=== PATIENT | female | born 1940 | race Caucasian/White ===

== ENCOUNTER 2024-07-26 12:53 | Inpatient (IN) | payer MEDICARE, OTHER ==
[~2024-07-26] VITALS: Ht 165.1 cm; Wt 72.1 kg
[2024-07-26 13:38] VITALS: BP 162/69; TEMP 98.1
[2024-07-26 14:13] VITALS: BP 162/69; TEMP 98.1
[2024-07-26 18:43] VITALS: BP 126/62; TEMP 98.6; O2SAT 98
[2024-07-26] MEDS ORDERED: REMEDY ESSENTIAL ZINC PASTE 113 GM TOP PRN (20:00)
[2024-07-26 21:50] VITALS: BP 111/57; TEMP 98.3; O2SAT 94
[2024-07-26] MEDS ORDERED: RASA1TAB4 PO (22:29)
[2024-07-26] MEDS ORDERED: EZET10TA15 PO (22:29)
[2024-07-26] MEDS ORDERED: LEVO75TA7 PO (22:29)
[2024-07-26] MEDS ORDERED: ENOX40DI SUBCUT (22:29)
[2024-07-26] MEDS ORDERED: CARB1TAB21 PO (22:29)
[2024-07-26] MEDS ORDERED: EVOL140P3 SQ (22:29)
[2024-07-26] MEDS ORDERED: ASPI81TA31 PO (22:29)
[2024-07-27] MEDS: CARBIDOPA/LEVODOPA 25-100MG TABLET PO SCH (00:48)
[2024-07-27] MEDS: ZOLPIDEM 5 MG TABLET PO PRN (01:35)
[2024-07-27] MEDS: LEVOTHYROXINE SODIUM 75 MCG TABLET PO SCH (06:21)
[2024-07-27 07:20] VITALS: BP 143/68; TEMP 97.7; O2SAT 96
[2024-07-27 07:28] LABS: BASOPHILS # (AUTO) 0.1 K/UL (0.0-0.2); BASOPHILS % (AUTO) 1.3 % (0.0-2.0); EOSINOPHILS # (AUTO) 0.2 K/uL (0.0-0.7); EOSINOPHILS % (AUTO) 1.7 % (0.0-7.0); HEMATOCRIT 32.8 % (31.2-41.9); HEMOGLOBIN 10.8 g/dL (10.9-14.3); LYMPHOCYTES # (AUTO) 2.7 K/uL (0.8-4.8); LYMPHOCYTES % (AUTO) 29.6 % (20.5-51.5); MEAN CORPUSCULAR HEMOGLOBIN 32.2 uug (24.7-32.8); MEAN CORPUSCULAR HGB CONC 33 g/dL (32.3-35.6); MEAN CORPUSCULAR VOLUME 97.8 fL (75.5-95.3); MONOCYTES # (AUTO) 0.9 K/uL (0.1-1.30); MONOCYTES % (AUTO) 9.3 % (0.0-11.0); NEUTROPHILS # (AUTO) 5.4 K/uL (1.8-8.9); NEUTROPHILS % (AUTO) 58.1 % (38.5-71.5); PLATELET COUNT (AUTO) 404 K/uL (179-408); RED BLOOD CELL COUNT(AUTO) 3.35 MIL/uL (3.63-4.92); RED CELL DISTRIBUTION WIDTH 15.8 % (12.3-17.7); WHITE BLOOD COUNT (AUTO) 9.2 K/uL (3.8-11.8)
[2024-07-27 07:34] LABS: DIFFERENTIAL COMMENT 1
[2024-07-27 07:45] LABS: CALCIUM 8.7 mg/dL (8.5-10.1); CARBON DIOXIDE 28 mmol/L (21-32); CHLORIDE 105 mmol/L (98-107); CREATININE 0.5 mg/dL (0.6-1.3); GLUCOSE 112 mg/dL (74-106); POTASSIUM 4.1 mmol/L (3.5-5.1); SODIUM SERUM 141 mmol/L (136-145); UREA NITROGEN, BLOOD 16 mg/dL (7-18)
[2024-07-27 08:00] VITALS: BP 136/66; TEMP 98.2; O2SAT 96
[2024-07-27] MEDS: ASPIRIN 81 MG TAB.CHEW PO SCH (08:29)
[2024-07-27] MEDS: EZETIMIBE 10 MG TABLET PO SCH (08:29)
[2024-07-27] MEDS: ENOXAPARIN SODIUM 40 MG/0.4 ML DISP.SYRIN SQ SCH (08:30)
[2024-07-27] MEDS ORDERED: RASAGILINE MESYLATE PO SCH (09:00)
[2024-07-27] MEDS: TRAMADOL HCL 50 MG TABLET PO PRN (11:04)
[2024-07-27] MEDS: [UNRECOGNIZED DRUG - OTHER] PO SCH (12:05)
[2024-07-27] MEDS: RASAGILINE 0.5 MG PO SCH (12:05)
[2024-07-27 16:00] VITALS: BP 112/52; TEMP 97.6; O2SAT 96
[2024-07-27 19:58] VITALS: BP 116/51; TEMP 97.7; O2SAT 94
[2024-07-27] MEDS: HYDROXYUREA 500 MG CAPSULE PO SCH (20:18)
[2024-07-27 22:12] LABS: *BILIRUBIN,URIN NEGATIVE (NEGATIVE); *BLOOD, URINE NEGATIVE (NEGATIVE); *CLARITY,URINE CLEAR (CLEAR); *COLOR,URINE YELLOW (YELLOW); *KETONES,URINE NEGATIVE (NEGATIVE); *PROTEIN,URINE NEGATIVE (NEGATIVE); *UROBILINOGEN,URINE 0.2 E.U./dl (NORMAL); LEUKOCYTE ESTERASE ,URINE NEGATIVE (NEGATIVE); NITRITE, URINE NEGATIVE (NEGATIVE); UGLUCOSE NEGATIVE (NEGATIVE)
[2024-07-28 06:15] VITALS: BP 137/67; TEMP 98; O2SAT 95
[2024-07-28] MEDS: PANTOPRAZOLE SODIUM 40 MG TABLET.DR PO SCH (06:24)
[2024-07-28 08:00] VITALS: BP 111/58; TEMP 97.1; O2SAT 93
[2024-07-28 15:38] VITALS: BP 125/70; TEMP 97.1; O2SAT 97
[2024-07-28] MEDS ORDERED: NALOXONE HCL 0.4 MG/ML AMPUL IV PRN (17:45)
[2024-07-28 19:49] VITALS: BP 112/49; TEMP 98.8; O2SAT 95
[2024-07-28] MEDS: OXYCODONE HCL 10 MG TAB.SR.12H PO SCH (21:00)
[2024-07-29] VITALS (10 sets, daily range): BP systolic 76–126; BP diastolic 38–59; TEMP 97.7–98.7; O2SAT 93–97
[2024-07-29 06:11] LABS: BASOPHILS # (AUTO) 0.1 K/UL (0.0-0.2); BASOPHILS % (AUTO) 1.1 % (0.0-2.0); DIFFERENTIAL COMMENT 1; EOSINOPHILS # (AUTO) 0.2 K/uL (0.0-0.7); EOSINOPHILS % (AUTO) 1.9 % (0.0-7.0); HEMATOCRIT 30.7 % (31.2-41.9); HEMOGLOBIN 10.4 g/dL (10.9-14.3); LYMPHOCYTES # (AUTO) 2.2 K/uL (0.8-4.8); LYMPHOCYTES % (AUTO) 23.9 % (20.5-51.5); MEAN CORPUSCULAR HEMOGLOBIN 32.6 uug (24.7-32.8); MEAN CORPUSCULAR HGB CONC 34 g/dL (32.3-35.6); MEAN CORPUSCULAR VOLUME 96.6 fL (75.5-95.3); MONOCYTES % (AUTO) 10.5 % (0.0-11.0); NEUTROPHILS # (AUTO) 5.8 K/uL (1.8-8.9); NEUTROPHILS % (AUTO) 62.6 % (38.5-71.5); PLATELET COUNT (AUTO) 429 K/uL (179-408); RED BLOOD CELL COUNT(AUTO) 3.18 MIL/uL (3.63-4.92); RED CELL DISTRIBUTION WIDTH 15.4 % (12.3-17.7); WHITE BLOOD COUNT (AUTO) 9.2 K/uL (3.8-11.8)
[2024-07-29 06:39] LABS: ALANINE AMINOTRANSFERASE 25 U/L (14-59); ALBUMIN 2.5 g/dL (3.4-5.0); ALKALINE PHOSPHATASE 83 U/L (50-136); ASPARTATE AMINOTRANSFERASE 19 U/L (15-37); BILIRUBIN,TOTAL 0.5 mg/dL (0.2-1.0); CALCIUM 9.1 mg/dL (8.5-10.1); CARBON DIOXIDE 27 mmol/L (21-32); CHLORIDE 102 mmol/L (98-107); CREATININE 0.5 mg/dL (0.6-1.3); GLUCOSE 111 mg/dL (74-106); MAGNESIUM 2.2 mg/dL (1.8-2.4); NT-PRO BNP 64 pg/mL (0-125); PHOSPHOROUS 5.4 mg/dL (2.5-4.9); POTASSIUM 4.3 mmol/L (3.5-5.1); SODIUM SERUM 138 mmol/L (136-145); TOTAL PROTEIN, SERUM 6.6 g/dL (6.4-8.2); UREA NITROGEN, BLOOD 20 mg/dL (7-18)
[2024-07-29 06:40] LABS: THYROID STIMULATING HORMONE 5.699 mIU/mL (0.358-3.740)
[2024-07-29 06:58] LABS: CHOLESTEROL 118 mg/dL (<200); HDL CHOLESTEROL 70 mg/dL (40-60); TRIGLYCERIDES 69 MG/DL (30-150)
[2024-07-29] MEDS: IV NORMAL SALINE 500 ML IV ONE (10:26)
[2024-07-30] MEDS: ACETAMINOPHEN 325 MG TABLET PO PRN (02:15)
[2024-07-30] MEDS: KETOROLAC TROMETHAMINE 30 MG INJ IM ONE (03:49)
[2024-07-30 07:01] VITALS: BP 110/56; TEMP 98.4; O2SAT 97
[2024-07-30 07:50] VITALS: BP 134/52; TEMP 97.7; O2SAT 98
[2024-07-30] MEDS ORDERED: LINEZOLID 600 MG TABLET PO SCH (10:45)
[2024-07-30] MEDS: OXYCODONE HCL 5 MG TABLET PO PRN (14:41)
[2024-07-30 15:53] VITALS: BP 100/36; TEMP 98.7; O2SAT 95
[2024-07-30 16:13] VITALS: O2SAT 95
[2024-07-30 20:43] VITALS: BP 104/52; TEMP 97.4; O2SAT 96
[2024-07-31 07:00] VITALS: BP 109/68; TEMP 97.5; O2SAT 97
[2024-07-31 07:55] VITALS: TEMP 98.4
[2024-07-31 13:48] VITALS: O2SAT 96
[2024-07-31 16:17] VITALS: TEMP 97.7
[2024-07-31] MEDS: BISACODYL 10 MG SUPP.RECT RC ONE (18:46)
[2024-07-31 20:30] VITALS: BP 121/55; TEMP 97.9; O2SAT 93
[2024-07-31] MEDS: EZETIMIBE 10 MG TABLET PO SCH (22:10)
[2024-07-31] MEDS: OXYCODONE HCL 5 MG TABLET PO SCH (22:10)
[2024-07-31] MEDS ORDERED: KETOROLAC TROMETHAMINE 30 MG INJ ONE (22:20)
[2024-07-31 22:46] VITALS: BP 121/55; TEMP 97.9; O2SAT 93
[2024-07-31] MEDS: KETOROLAC TROMETHAMINE 30 MG INJ IM ONE (23:02)
[2024-08-01 03:32] VITALS: O2SAT 97
[2024-08-01 07:21] VITALS: BP 125/55; TEMP 98
[2024-08-01 08:00] VITALS: BP 119/58; TEMP 97.2; O2SAT 98
[2024-08-01 08:44] LABS: THYROID STIMULATING HORMONE 10.722 mIU/mL (0.358-3.740)
[2024-08-01] MEDS: SENNOSIDES/DOCUSATE SODIUM TABLET PO SCH (09:06)
[2024-08-01] MEDS: OXYCODONE HCL 5 MG TABLET PO SCH (13:30)
[2024-08-01 16:01] VITALS: BP 113/86; TEMP 97.6; O2SAT 98
[2024-08-01 20:28] VITALS: BP 104/46; TEMP 98.5; O2SAT 96
[2024-08-01] MEDS: CELECOXIB 200 MG CAPSULE PO SCH (20:33)
[2024-08-01] MEDS: KETOROLAC TROMETHAMINE 30 MG INJ IM PRN (23:09)
[2024-08-02 00:57] VITALS: O2SAT 96
[2024-08-02] MEDS: BISACODYL 10 MG SUPP.RECT RC PRN (05:30)
[2024-08-02] MEDS: LEVOTHYROXINE SODIUM 100 MCG TABLET PO SCH (06:24)
[2024-08-02] MEDS ORDERED: LEVOTHYROXINE SODIUM 75 MCG TABLET PO SCH (07:00)
[2024-08-02 07:20] VITALS: BP 134/56; TEMP 98.2; O2SAT 96
[2024-08-02 09:06] VITALS: BP 118/64; TEMP 98.7; O2SAT 96
[2024-08-02 16:15] VITALS: O2SAT 96
[2024-08-02] MEDS: METHOCARBAMOL 750 MG TABLET PO SCH (16:31)
[2024-08-02 19:51] VITALS: BP 109/51; TEMP 98.2; O2SAT 95
[2024-08-03 04:43] VITALS: BP 110/56; TEMP 98.4; O2SAT 97
[2024-08-03] MEDS: LEVOTHYROXINE SODIUM 100 MCG TABLET PO SCH (06:02)
[2024-08-03 08:00] VITALS: BP 143/55; TEMP 98.2; O2SAT 97
[2024-08-03 10:30] VITALS: BP 129/48; TEMP 98.1; O2SAT 92
[2024-08-03 16:00] VITALS: BP 108/49; TEMP 98.1; O2SAT 94
[2024-08-04 07:03] VITALS: BP 133/45; TEMP 98.3; O2SAT 93
[2024-08-04 08:00] VITALS: BP 119/47; TEMP 97.7; O2SAT 93
[2024-08-04 16:00] VITALS: BP 117/53; TEMP 97.6; O2SAT 95
[2024-08-05 09:01] VITALS: TEMP 98.4
[2024-08-05 16:23] VITALS: TEMP 97.8
[2024-08-05 20:00] VITALS: BP 118/62; TEMP 98.3; O2SAT 96
[2024-08-06 05:00] VITALS: BP 120/63; TEMP 98.2; O2SAT 97
[2024-08-06 08:00] VITALS: BP 136/51; TEMP 97.7; O2SAT 97
[2024-08-06 16:36] VITALS: BP 101/42; TEMP 97.9; O2SAT 97
[2024-08-06 22:11] VITALS: TEMP 98
[2024-08-07 07:17] LABS: BASOPHILS # (AUTO) 0.2 K/UL (0.0-0.2); BASOPHILS % (AUTO) 2.2 % (0.0-2.0); EOSINOPHILS # (AUTO) 0.1 K/uL (0.0-0.7); HEMATOCRIT 31.9 % (31.2-41.9); HEMOGLOBIN 10.8 g/dL (10.9-14.3); LYMPHOCYTES # (AUTO) 2.6 K/uL (0.8-4.8); LYMPHOCYTES % (AUTO) 35.3 % (20.5-51.5); MEAN CORPUSCULAR HEMOGLOBIN 32.9 uug (24.7-32.8); MEAN CORPUSCULAR HGB CONC 34 g/dL (32.3-35.6); MEAN CORPUSCULAR VOLUME 97.6 fL (75.5-95.3); MONOCYTES # (AUTO) 0.6 K/uL (0.1-1.30); MONOCYTES % (AUTO) 8.4 % (0.0-11.0); NEUTROPHILS # (AUTO) 3.8 K/uL (1.8-8.9); NEUTROPHILS % (AUTO) 52.1 % (38.5-71.5); PLATELET COUNT (AUTO) 479 K/uL (179-408); RED BLOOD CELL COUNT(AUTO) 3.27 MIL/uL (3.63-4.92); RED CELL DISTRIBUTION WIDTH 15.9 % (12.3-17.7); WHITE BLOOD COUNT (AUTO) 7.3 K/uL (3.8-11.8)
[2024-08-07 07:19] VITALS: TEMP 97.6
[2024-08-07 07:20] LABS: DIFFERENTIAL COMMENT 1
[2024-08-07 07:23] LABS: CALCIUM 8.6 mg/dL (8.5-10.1); CARBON DIOXIDE 28 mmol/L (21-32); CHLORIDE 106 mmol/L (98-107); CREATININE 0.6 mg/dL (0.6-1.3); GLUCOSE 95 mg/dL (74-106); POTASSIUM 4.6 mmol/L (3.5-5.1); SODIUM SERUM 139 mmol/L (136-145); UREA NITROGEN, BLOOD 22 mg/dL (7-18)
[2024-08-07 08:00] VITALS: BP 125/57; TEMP 97.6; O2SAT 97
[2024-08-07] MEDS: HYDROMORPHONE HCL 2 MG TABLET PO PRN (19:06)
[2024-08-07] MEDS: KETOROLAC TROMETHAMINE 30 MG INJ IM ONE (21:21)
[2024-08-07 21:29] VITALS: BP 104/59; TEMP 98.3; O2SAT 94
[2024-08-08 06:32] VITALS: BP 109/61; TEMP 98.5; O2SAT 95
[2024-08-08 07:33] LABS: BASOPHILS # (AUTO) 0.1 K/UL (0.0-0.2); BASOPHILS % (AUTO) 1.2 % (0.0-2.0); EOSINOPHILS # (AUTO) 0.1 K/uL (0.0-0.7); EOSINOPHILS % (AUTO) 1.7 % (0.0-7.0); HEMATOCRIT 32.2 % (31.2-41.9); HEMOGLOBIN 10.9 g/dL (10.9-14.3); LYMPHOCYTES # (AUTO) 1.9 K/uL (0.8-4.8); LYMPHOCYTES % (AUTO) 26.3 % (20.5-51.5); MEAN CORPUSCULAR HEMOGLOBIN 32.7 uug (24.7-32.8); MEAN CORPUSCULAR HGB CONC 34 g/dL (32.3-35.6); MEAN CORPUSCULAR VOLUME 96.8 fL (75.5-95.3); MONOCYTES # (AUTO) 0.6 K/uL (0.1-1.30); MONOCYTES % (AUTO) 8.5 % (0.0-11.0); NEUTROPHILS # (AUTO) 4.4 K/uL (1.8-8.9); NEUTROPHILS % (AUTO) 62.3 % (38.5-71.5); PLATELET COUNT (AUTO) 517 K/uL (179-408); RED BLOOD CELL COUNT(AUTO) 3.32 MIL/uL (3.63-4.92); RED CELL DISTRIBUTION WIDTH 15.6 % (12.3-17.7); WHITE BLOOD COUNT (AUTO) 7.1 K/uL (3.8-11.8)
[2024-08-08 07:42] LABS: DIFFERENTIAL COMMENT 1
[2024-08-08 07:49] LABS: CALCIUM 9.4 mg/dL (8.5-10.1); CARBON DIOXIDE 26 mmol/L (21-32); CHLORIDE 106 mmol/L (98-107); CREATININE 0.7 mg/dL (0.6-1.3); GLUCOSE 119 mg/dL (74-106); MAGNESIUM 2.2 mg/dL (1.8-2.4); PHOSPHOROUS 4.1 mg/dL (2.5-4.9); POTASSIUM 4.1 mmol/L (3.5-5.1); SODIUM SERUM 141 mmol/L (136-145); UREA NITROGEN, BLOOD 17 mg/dL (7-18)
[2024-08-08 08:18] LABS: THYROID STIMULATING HORMONE 4.077 mIU/mL (0.358-3.740)
[2024-08-08 12:00] VITALS: BP 117/51; TEMP 98.2; O2SAT 96
[2024-08-08 18:11] VITALS: BP 124/56; TEMP 98.1; O2SAT 94
[2024-08-08 22:49] VITALS: BP 111/50; TEMP 98.1; O2SAT 93
[2024-08-09 06:41] VITALS: BP 131/59; TEMP 98.2; O2SAT 94
[2024-08-09 07:54] VITALS: TEMP 97.4
[2024-08-09 15:59] VITALS: TEMP 97.7
[2024-08-09 21:14] VITALS: BP 106/55; TEMP 97.8; O2SAT 96
[2024-08-10 05:34] VITALS: BP 118/53; TEMP 98; O2SAT 94
[2024-08-10 08:00] VITALS: TEMP 98.1
[2024-08-10 16:23] VITALS: TEMP 98.4
[2024-08-10] MEDS: MIRALAX 17 GM POWD.PACK PO PRN (20:52)
[2024-08-10 21:23] VITALS: BP 114/49; TEMP 98.2; O2SAT 92
[2024-08-11 06:54] VITALS: BP 147/52; TEMP 97.6; O2SAT 96
[2024-08-11 07:37] VITALS: BP 140/55; TEMP 98; O2SAT 96
[2024-08-11] MEDS: HYDROMORPHONE HCL 2 MG TABLET PO PRN (09:19)
[2024-08-11 16:02] VITALS: BP 102/51; TEMP 98.2; O2SAT 93
[2024-08-11 20:15] VITALS: BP 127/55; TEMP 98.2; O2SAT 96
[2024-08-12 05:30] VITALS: BP 129/50; TEMP 98; O2SAT 94
[2024-08-12 08:00] VITALS: BP 118/45; TEMP 98; O2SAT 95
[2024-08-12 16:19] VITALS: BP 117/49; TEMP 98.4; O2SAT 97
[2024-08-12 20:59] VITALS: BP 110/60; TEMP 98.1; O2SAT 95
[2024-08-12] MEDS ORDERED: MAGNESIUM CITRATE 296 ML BOTTLE ONE (21:10)
[2024-08-12] MEDS: MAGNESIUM CITRATE 296 ML BOTTLE PO ONE (21:58)
[2024-08-13 07:13] VITALS: BP 122/58; TEMP 97.6; O2SAT 97
[2024-08-13 08:16] LABS: BASOPHILS # (AUTO) 0.1 K/UL (0.0-0.2); BASOPHILS % (AUTO) 0.7 % (0.0-2.0); EOSINOPHILS # (AUTO) 0.1 K/uL (0.0-0.7); EOSINOPHILS % (AUTO) 1.1 % (0.0-7.0); HEMATOCRIT 35.6 % (31.2-41.9); LYMPHOCYTES # (AUTO) 1.9 K/uL (0.8-4.8); LYMPHOCYTES % (AUTO) 25.8 % (20.5-51.5); MEAN CORPUSCULAR HEMOGLOBIN 33.1 uug (24.7-32.8); MEAN CORPUSCULAR HGB CONC 34 g/dL (32.3-35.6); MEAN CORPUSCULAR VOLUME 97.9 fL (75.5-95.3); MONOCYTES # (AUTO) 0.7 K/uL (0.1-1.30); MONOCYTES % (AUTO) 8.9 % (0.0-11.0); NEUTROPHILS # (AUTO) 4.7 K/uL (1.8-8.9); NEUTROPHILS % (AUTO) 63.5 % (38.5-71.5); PLATELET COUNT (AUTO) 472 K/uL (179-408); RED BLOOD CELL COUNT(AUTO) 3.63 MIL/uL (3.63-4.92); RED CELL DISTRIBUTION WIDTH 15.9 % (12.3-17.7); WHITE BLOOD COUNT (AUTO) 7.5 K/uL (3.8-11.8)
[2024-08-13 08:22] LABS: DIFFERENTIAL COMMENT 1
[2024-08-13 08:32] LABS: ALANINE AMINOTRANSFERASE 21 U/L (14-59); ALBUMIN 3.1 g/dL (3.4-5.0); ALKALINE PHOSPHATASE 127 U/L (50-136); ASPARTATE AMINOTRANSFERASE 19 U/L (15-37); BILIRUBIN,TOTAL 0.3 mg/dL (0.2-1.0); CALCIUM 9.2 mg/dL (8.5-10.1); CARBON DIOXIDE 29 mmol/L (21-32); CHLORIDE 104 mmol/L (98-107); CREATININE 0.5 mg/dL (0.6-1.3); GLUCOSE 99 mg/dL (74-106); MAGNESIUM 2.7 mg/dL (1.8-2.4); SODIUM SERUM 141 mmol/L (136-145); TOTAL PROTEIN, SERUM 6.8 g/dL (6.4-8.2); UREA NITROGEN, BLOOD 17 mg/dL (7-18)
[2024-08-13 08:39] VITALS: TEMP 97.6
[2024-08-13] MEDS ORDERED: OXYC5TAB3 PO (15:23)
[2024-08-13] MEDS ORDERED: HYDR500C PO (15:23)
[2024-08-13] MEDS ORDERED: PANT40TA49 PO (15:23)
[2024-08-13] MEDS ORDERED: LEVO100T10 PO (15:23)
[2024-08-13] MEDS ORDERED: Naloxone Hcl IV (15:23)
[2024-08-13 16:00] VITALS: TEMP 97.7
== END 2024-08-13 06:35 | disposition home health service (06) | DRG 560 ==
PROVIDERS: ADMIT Physical Medicine & Rehabilitation Pain Medicine; ATTEND Physical Medicine & Rehabilitation Pain Medicine
DX: S42.211D Unspecified displaced fracture of surgical neck of right humerus, subsequent encounter for fracture with routine healing (principal); D68.59 Other primary thrombophilia; G95.20 Unspecified cord compression; W18.30XD Fall on same level, unspecified, subsequent encounter; S22.41XD Multiple fractures of ribs, right side, subsequent encounter for fracture with routine healing; G20.A1 Parkinson's disease without dyskinesia, without mention of fluctuations; R29.6 Repeated falls; E78.5 Hyperlipidemia, unspecified; E03.9 Hypothyroidism, unspecified; D53.9 Nutritional anemia, unspecified; E66.9 Obesity, unspecified; Z68.26 Body mass index [BMI] 26.0-26.9, adult; K59.00 Constipation, unspecified; Z91.81 History of falling; R26.81 Unsteadiness on feet; M19.90 Unspecified osteoarthritis, unspecified site; R53.1 Weakness; R73.9 Hyperglycemia, unspecified; D32.0 Benign neoplasm of cerebral meninges
CPT/HCPCS: 36415; 71045; 73030; 73200; 74018; 83735; 83921; 84100; 84443; 85025; 85610; 93005; 97535-GO-CO; A4663; J1650; J1885; J7040